=== PATIENT | male | born 1965 | race Caucasian/White ===

== ENCOUNTER 2020-04-26 13:55 | Emergency (ER) | payer OTHER ==
[2020-04-26] MEDS ORDERED: NORCO 5-325 TA1 EACH PO (17:25)
[2020-04-26] MEDS ORDERED: NAPROXEN500 MG PO (17:25)
== END 2020-04-26 18:08 | disposition home or self-care (01) ==
LOC: FER 13:55
DX: S46.311A Strain of muscle, fascia and tendon of triceps, right arm, initial encounter (principal); M25.511 Pain in right shoulder; M25.521 Pain in right elbow; I10 Essential (primary) hypertension; Z79.82 Long term (current) use of aspirin; Z79.899 Other long term (current) drug therapy; W11.XXXA Fall on and from ladder, initial encounter; Y92.89 Other specified places as the place of occurrence of the external cause; Y99.0 Civilian activity done for income or pay
CPT/HCPCS: 73030; 73080